=== PATIENT | female | born 1975 | race Hispanic/Latino ===

== ENCOUNTER 2018-12-20 05:56 | Day surgery (SDC) | payer BC ==
[2018-12-16 10:40] VITALS: BP 126/86
[2018-12-16 10:44] LABS: HEMATOCRIT 40.7 % (36-48); MEAN CORPUSCULAR HEMOGLOBIN 30.5 pg (27.0-33.0); MEAN CORPUSCULAR HGB CONC 33.4 g/dL (32.0-36.0); MEAN CORPUSCULAR VOLUME 91.1 fL (79-99); NUCLEATED RED BLOOD CELLS 0.1 % (0.0-0.19); PLATELET COUNT (AUTO) 209 K/uL (130-400); RED BLOOD CELL COUNT(AUTO) 4.46 MIL/uL (4.00-5.50); RED CELL DISTRIBUTION WIDTH 13.2 % (11.0-15.5); WHITE BLOOD COUNT (AUTO) 7.2 K/uL (4.8-10.8)
[2018-12-16 10:58] LABS: INR 0.98 (0.85-1.15); PARTIAL THROMBOPLASTIN TIME 30.6 SEC (26.3-35.5); PROTHROMBIN TIME 10.3 SEC (9.6-11.6)
[2018-12-16 10:59] LABS: CREATININE 0.8 mg/dL (0.5-1.5); POTASSIUM 4.3 mmol/L (3.5-5.1)
[2018-12-16 11:23] LABS: BASOPHILS % (MANUAL) 3 % (0-2); EOSINOPHILS % (MANUAL) 1 % (1-6); LYMPHOCYTES % (MANUAL) 23 % (22-44); MAN.DIFF COMMENT-IMPRESSION MANUAL DIFFERENTIAL; MONOCYTES % (MANUAL) 9 % (2-9); SEGMENTED NEUTROPHILS % 64 % (40-70)
[2018-12-16 11:24] LABS: PLATELET MORPHOLOGY COMMENT ADEQUATE
[~2018-12-20] VITALS: Ht 161.3 cm; Wt 121.5 kg
[2018-12-20] VITALS (8 sets, daily range): BP systolic 97–133; BP diastolic 62–89
[~2018-12-20 05:56] MED LIST: METO-408 PO
[2018-12-20] MEDS ORDERED: VITAMIN D PO (06:55)
[2018-12-20] MEDS ORDERED: SODIUM CHLORIDE 0.9% 1000ML 1,000 ML IV ONE ×2 (07:28)
--- NOTE | 2018-12-20 12:48 | NUR ---
PROCEDURE DELAYED WAIT ON REP DRJustino AWARE AND PATIENT BEING UPDATED.
--- NOTE | 2018-12-20 13:35 | NUR ---
PT. 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
[2018-12-20] MEDS ORDERED: MIDAZOLAM HCL 1 MG/ML 2ML VIAL ONE ×4 (14:20→15:50)
[2018-12-20] MEDS ORDERED: MEPERIDINE-PF 25 MG/ML SYG ONE ×4 (14:20→15:50)
[2018-12-20] MEDS ORDERED: LIDOCAINE HCL 2% 20ML ONE ×2 (14:20→14:41)
[2018-12-20] MEDS ORDERED: FLEC50TA3 PO (16:26)
[2018-12-20] MEDS ORDERED: AEC81 PO (16:26)
[2018-12-20] MEDS ORDERED: FLECAINIDE ACETATE 100 MG TABLET PO SCH (16:30)
[2018-12-20] MEDS ORDERED: METOPROLOL TARTRATE 25 MG TAB PO SCH (16:30)
[2018-12-20] MEDS ORDERED: METO-408 PO (16:35)
[2018-12-20] MEDS ORDERED: PROP225C11 PO (16:48)
--- NOTE | 2018-12-20 17:15 | NUR ---
ASSESSMENT RECEIVED PT FROM [employer] STAFF RHONDA DURHAM. PT [id number]. BILATERAL GROIN DRSG DRY AND INTACT. SOFT TOUCH. NO BLEEDING, OOZING NOTED. INSTRUCTED ON IMPORTANCE OF LYING FLAT AND LIFTING HEAD UP OFF OF BED. PT VERBALIZED UNDERSTANDING. FAMILY AT BEDSIDE.
[2018-12-20] MEDS ORDERED: PROPAFENONE HCL 150 MG TABLET PO SCH (18:00)
--- NOTE | 2018-12-20 20:00 | NUR ---
DISCHARGE ORAL AND WRITTEN DISCHARGE INSTRUCTIONS GIVEN TO PT AND PTS FAMILY ALONG WITH NEW PRESCRIPTIONS. NO OTHER QUESTIONS AT THIS TIME. DRSG TO BILATERAL GROIN DRY AND INTACT. NO BLEEDING, OOZING NOTED TO SITES.
== END 2018-12-20 20:05 | disposition home or self-care (01) ==
LOC: DAH 05:56
PROVIDERS: ATTEND Internal Medicine Cardiovascular Disease
DX: I47.1 Supraventricular tachycardia (principal); Z79.899 Other long term (current) drug therapy; Z82.49 Family history of ischemic heart disease and other diseases of the circulatory system; Z82.5 Family history of asthma and other chronic lower respiratory diseases; Z79.01 Long term (current) use of anticoagulants
CPT/HCPCS: 36415; 80048; 84703; 85025; 85610; 85730; 93620; 93621; A4606; A4649; C1730 ×4; C1894 ×5; J1644; J2175 ×4; J2250 ×4; J3490 ×2; J7030 ×2; 99156; 99157